=== PATIENT | female | born 1990 | race Two or more races ===

== ENCOUNTER → 2017-05-27 | Emergency (ER) | payer OTHER ==
[~2017-05-27] VITALS: Ht 170.2 cm; Wt 53.5 kg
[~2017-05-27] MED LIST: SYNTHROID75 MCG; SYNTHROID88 MCG
== END | disposition home or self-care (01) ==
LOC: ER 19:07
DX: N39.0 Urinary tract infection, site not specified (principal)

== ENCOUNTER 2019-10-12 11:52 | Emergency (ER) | payer OTHER ==
[~2019-10-12] VITALS: Ht 170.2 cm; Wt 59.4 kg
== END 2019-10-12 20:00 | disposition home or self-care (01) ==
LOC: ER 11:52
DX: O21.1 Hyperemesis gravidarum with metabolic disturbance (principal); O26.891 Other specified pregnancy related conditions, first trimester; R10.13 Epigastric pain; Z3A.01 Less than 8 weeks gestation of pregnancy; Z03.818 Encounter for observation for suspected exposure to other biological agents ruled out

== ENCOUNTER 2019-10-31 19:55 | Emergency (ER) | payer OTHER ==
[~2019-10-31] VITALS: Ht 170.2 cm; Wt 59.0 kg
[2019-10-31] MEDS ORDERED: SYNTHROID125 MCG PO (20:17)
== END 2019-11-01 00:11 | disposition home or self-care (01) ==
LOC: ER 19:55
DX: O21.0 Mild hyperemesis gravidarum (principal); Z34.01 Encounter for supervision of normal first pregnancy, first trimester

== ENCOUNTER 2020-04-16 16:03 | Inpatient (IN) | payer OTHER ==
[~2020-04-16] VITALS: Ht 170.2 cm; Wt 70.8 kg
[~2020-04-16 16:03] MED LIST changes: +SYNTHROID125 MCG PO
[2020-04-16] MEDS ORDERED: SYNTHROID150 MCG PO (16:41)
[2020-04-16] MEDS ORDERED: PRENATABS RX T1 EACH PO (16:42)
[2020-04-16] MEDS ORDERED: NASAL MIST126 ML (16:42)
[2020-04-19] MEDS ORDERED: PREPLUS CA-FE1 EACH PO (13:35)
[2020-04-19] MEDS ORDERED: Ferro-Plex CAPLET PO (13:35)
== END 2020-04-19 14:48 | disposition home or self-care (01) | DRG 833 ==
LOC: LDR 16:03 → OB/GYN 04-17 13:03
PROVIDERS: ADMIT Obstetrics & Gynecology; ATTEND Obstetrics & Gynecology
PROC: BY4FZZZ Ultrasonography of Third Trimester, Single Fetus (ICD-10-PCS; principal; 2020-04-16)
DX: O99.283 Endocrine, nutritional and metabolic diseases complicating pregnancy, third trimester (principal); E16.1 Other hypoglycemia; Z3A.33 33 weeks gestation of pregnancy; Z20.822 Contact with and (suspected) exposure to COVID-19

== ENCOUNTER 2020-05-21 08:04 | Inpatient (IN) | payer OTHER ==
[~2020-05-21] VITALS: Ht 170.2 cm; Wt 70.8 kg
[~2020-05-21 08:04] MED LIST changes: +Ferro-Plex CAPLET PO; +NASAL MIST126 ML; +PRENATABS RX T1 EACH PO; +PREPLUS CA-FE1 EACH PO; +SYNTHROID150 MCG PO
[2020-05-21] MEDS ORDERED: IRON325 MG PO (08:39)
== END 2020-05-24 11:58 | disposition home or self-care (01) | DRG 806 ==
LOC: OBS/DEL 08:04 → OB/GYN 18:15 → LDR 18:15 → OB/GYN 05-22 05:19
PROVIDERS: ADMIT Obstetrics & Gynecology; ATTEND Obstetrics & Gynecology
PROC: 10E0XZZ Delivery of Products of Conception, External Approach (ICD-10-PCS; principal; 2020-05-21)
PROC: 0HQ9XZZ Repair Perineum Skin, External Approach (ICD-10-PCS; 2020-05-21)
PROC: 10907ZC Drainage of Amniotic Fluid, Therapeutic from Products of Conception, Via Natural or Artificial Opening (ICD-10-PCS; 2020-05-21)
PROC: 4A1HXFZ Monitoring of Products of Conception, Cardiac Rhythm, External Approach (ICD-10-PCS; 2020-05-21)
DX: O70.0 First degree perineal laceration during delivery (principal); O36.0930 Maternal care for other rhesus isoimmunization, third trimester, not applicable or unspecified; Z37.0 Single live birth; Z3A.39 39 weeks gestation of pregnancy; Z20.822 Contact with and (suspected) exposure to COVID-19